=== PATIENT | female | born 1985 | race Caucasian/White ===

== ENCOUNTER 2017-08-05 23:15 | Inpatient (IN) | payer BC, OTHER ==
[2017-08-05] MEDS ORDERED: ONDANSETRON 4 MG/2 ML VIAL IVPB ONE (23:44)
[2017-08-05] MEDS ORDERED: morphine CARPU-JECT 4 MG/1 ML DISP.SYRIN IVPUSH ONE (23:44)
[2017-08-05] MEDS ORDERED: SODIUM CHLORIDE 1,000 ML IV STA (23:44)
[2017-08-05] MEDS ORDERED: PANTOPRAZOLE SODIUM 40 MG VIAL IVPUSH ONE (23:44)
[2017-08-05] MEDS ORDERED: FAMOTIDINE IV 20 MG/12 ML VIAL IVPUSH ONE (23:45)
[2017-08-05] MEDS ORDERED: MORPHINE SULFATE 10 MG/1 ML *VIAL ONE (23:53)
[2017-08-05] MEDS ORDERED: ONDANSETRON 4 MG/2 ML VIAL ONE (23:54)
[2017-08-05] MEDS ORDERED: PANTOPRAZOLE SODIUM 40 MG VIAL ONE (23:54)
[2017-08-05] MEDS ORDERED: FAMOTIDINE 20 MG/50 ML IVPB 20 MG/50 ML MG IVPB ONE (23:54)
[2017-08-06 00:36] LABS: EOS % 0.1 % (0-4.5); HEMATOCRIT 40.7 % (32.4-45.2); HEMOGLOBIN 13.2 GM/dL (10.7-15.3); LYMPH % 8.9 % (8-40); MCH 28.8 pg (25.7-33.7); MCHC 32.4 g/dl (32.0-36.0); MEAN CELL VOLUME 88.9 fl (80-96); MEAN PLT VOLUME 9.7 fl (7.5-11.1); MONO % 2.6 % (3.8-10.2); NEUT % 88.4 % (42.8-82.8); PLATELET COUNT 320 K/MM3 (134-434); RBC 4.58 M/mm3 (3.60-5.2); RDW 13.1 % (11.6-15.6)
[2017-08-06] MEDS ORDERED: PANTOPRAZOLE SODIUM 80 MG in SODIUM CHLORIDE 100 ML IVPB SCH (00:45)
[2017-08-06 00:49] LABS: INR 1.11 (0.82-1.09); PROTHROMBIN TIME (PATIENT) 12.5 SEC (9.98-11.88)
[2017-08-06 00:52] LABS: ACTIVATED PTT 28.8 SECONDS (26.9-34.4)
[2017-08-06] MEDS ORDERED: morphine CARPU-JECT 4 MG/1 ML DISP.SYRIN IVPUSH ONE (01:15)
--- NOTE | 2017-08-06 01:19 | PDOC ---
History of Present Illness - History of Present Illness Initial Comments: 08/06/17 01:42 The patient is a 31 year old female, with a significant past medical history of peptic ulcer, who presents to the emergency department with, approx. one day of epigastric abdominal pain and multiple episodes of vomiting and diarrhea. The patient reports she has been unable to tolerate foods and reports multiple episodes of vomiting with noting a small amount of bright red blood at first but now reports the vomit has been bilious and non bloody. The patient also reports multiple episodes of diarrhea and noting a small amount of bright red blood. The patient reports that approx. one year ago she was diagnosed with a peptic ulcer and reports the symptoms feel exactly the same. The patient reports she followed with GI Dr. Liriano for her peptic ulcer last year. She denies recent fevers, chills, headache or dizziness. She denies recent dysuria, frequency, urgency or hematuria. She denies recent chest pain or shortness of breath. Allergies: NKA Past surgical history: None reported. Social history: Nonsmoker. Denies EtOH use and recreational drug use. <Jaylan Heller - Last Filed: 08/06/17 02:19> - General History Source: Patient Exam Limitations: No Limitations <Gianni Bergeron - Last Filed: 08/06/17 03:23> - General Chief Complaint: Rectal Bleed Stated Complaint: VOMITING/DIARRHEA Time Seen by Provider: 08/05/17 23:28 Past History <Jaylan Heller - Last Filed: 08/06/17 02:19> - Past Medical History COPD: No GI Disorders: Yes (ulcer) - Suicide/Smoking/Psychosocial Hx Smoking History: Never smoked Have you smoked in the past 12 months: No Information on smoking cessation initiated: No Hx Alcohol Use: No Drug/Substance Use Hx: No Substance Use Type: Marijuana, Opiates, Prescribed <Gianni Bergeron - Last Filed: 08/06/17 03:23> - Past Medical History Allergies/Adverse Reactions: Allergies Allergy/AdvReac Type Severity Reaction Status Date / Time No Known Allergies Allergy Verified 08/05/17 23:23 Home Medications: Ambulatory Orders Acetaminophen [Tylenol -] 500 mg PO Q6H #100 tablet 08/05/15 Ondansetron [Zofran -] 4 mg PO BID #14 tablet 08/05/15 Oxycodone HCl 15 mg PO Q6H PRN 08/05/15 Oxycodone Sr [Oxycontin -] 15 mg PO BID PRN 08/05/15 Simethicone [Gas-X] 80 mg PO QID #60 tab.chew 08/05/15 Review of Systems - Review of Systems Able to Perform ROS?: Yes Comments:: 08/06/17 01:42 GENERAL/CONSTITUTIONAL: No fever or chills. No weakness. HEAD, EYES, EARS, NOSE AND THROAT: No change in vision. No ear pain or discharge. No sore throat. CARDIOVASCULAR: No chest pain or shortness of breath. RESPIRATORY: No cough, wheezing, or hemoptysis. GASTROINTESTINAL: +Epigastric abdominal pain. +Nausea. +Vomiting. +Diarrhea. No constipation. GENITOURINARY: No dysuria, frequency, or change in urination. MUSCULOSKELETAL: No joint or muscle swelling or pain. No neck or back pain. SKIN: No rash NEUROLOGIC: No headache, vertigo, loss of consciousness, or change in strength/ sensation. ENDOCRINE: No increased thirst. No abnormal weight change. HEMATOLOGIC/LYMPHATIC: No anemia, easy bleeding, or history of blood clots. ALLERGIC/IMMUNOLOGIC: No hives or skin allergy. <Jaylan Heller - Last Filed: 08/06/17 02:19> *Physical Exam - Vital Signs Last Vital Signs Temp Pulse Resp BP Pulse Ox 98.9 F 99 H 18 157/100 100 08/05/17 23:18 08/05/17 23:18 08/05/17 23:18 08/05/17 23:18 08/05/17 23:18 - Physical Exam Comments: 08/06/17 01:42 GENERAL: +Uncomfortable appearing. Awake, alert, and fully oriented. HEAD: No signs of trauma EYES: PERRLA, EOMI, sclera anicteric, conjunctiva clear ENT: +Dry mucus membranes. Auricles normal inspection, hearing grossly normal, nares patent, oropharynx clear without exudates. NECK: Normal ROM, supple, no lymphadenopathy, JVD, or masses LUNGS: Breath sounds equal, clear to auscultation bilaterally. No wheezes, and no crackles HEART: Regular rate and rhythm, normal S1 and S2, no murmurs, rubs or gallops ABDOMEN: +Tender to epigastric region. Negative murphys sign. Soft, normoactive bowel sounds. No guarding, no rebound. No masses RECTAL: +Small external hemorrhoid EXTREMITIES: Normal range of motion, no edema. No clubbing or cyanosis. No cords, erythema, or tenderness NEUROLOGICAL: Cranial nerves II through XII grossly intact. Normal speech, normal gait SKIN: Warm, Dry, normal turgor, no rashes or lesions noted. <Jaylan Heller - Last Filed: 08/06/17 02:19> - Vital Signs Last Vital Signs Temp Pulse Resp BP Pulse Ox 98.9 F 99 H 18 157/100 100 08/05/17 23:18 08/05/17 23:18 08/05/17 23:18 08/05/17 23:18 08/05/17 23:18 <Gianni Bergeron - Last Filed: 08/06/17 03:23> ED Treatment Course - LABORATORY CBC & Chemistry Diagram: 08/06/17 00:08 08/06/17 00:08 - ADDITIONAL ORDERS Additional order review: Laboratory Results 08/06/17 08/06/17 08/06/17 00:15 00:08 00:08 PT with INR INR PTT (Actin FS) Sodium 138 Potassium 4.1 Chloride 101 Carbon Dioxide 25 Anion Gap 12 BUN 9 Creatinine 0.6 Creat Clearance w eGFR > 60 Random Glucose 90 Calcium 9.9 Total Bilirubin 0.7 AST 14 L ALT 46 Alkaline Phosphatase 91 Total Protein 7.6 Albumin 4.2 Lipase 76 Serum , Qual Stool Occult Blood Negative Blood Type O POSITIVE 08/06/17 08/06/17 00:08 00:08 PT with INR 12.50 H INR 1.11 PTT (Actin FS) 28.8 Sodium Potassium Chloride Carbon Dioxide Anion Gap BUN Creatinine Creat Clearance w eGFR Random Glucose Calcium Total Bilirubin AST ALT Alkaline Phosphatase Total Protein Albumin Lipase Serum , Qual Negative Stool Occult Blood Blood Type 08/06/17 00:08 RBC 4.58 MCV 88.9 MCHC 32.4 RDW 13.1 MPV 9.7 Neutrophils % 88.4 H Lymphocytes % 8.9 Monocytes % 2.6 L Eosinophils % 0.1 D Basophils % 0.0 - Medications Given in the ED: ED Medications Discontinued Medications Generic Name Dose Route Start Last Admin Trade Name Freq PRN Reason Stop Dose Admin Famotidine 20 mg in 12 mls @ 144 mls/hr 08/05/17 23:45 08/06/17 00:05 Pepcid 20 Mg/12 Ml Push IVPUSH 08/05/17 23:49 144 mls/hr ONCE ONE Administration Sodium Chloride 1,000 mls @ 1,000 mls/hr 08/05/17 23:44 08/06/17 00:05 Normal Saline - IV 08/06/17 00:43 1,000 mls/hr ASDIR STA Administration Morphine Sulfate 4 mg 08/05/17 23:44 08/06/17 00:05 Morphine Injection - IVPUSH 08/05/17 23:45 4 mg ONCE ONE Administration Ondansetron HCl 4 mg 08/05/17 23:44 08/06/17 00:05 Zofran Injection IVPB 08/05/17 23:45 4 mg ONCE ONE Administration Pantoprazole Sodium 40 mg 08/05/17 23:44 08/06/17 00:05 Protonix Iv IVPUSH 08/05/17 23:45 40 mg ONCE ONE Administration <Jaylan Heller - Last Filed: 08/06/17 02:19> - LABORATORY CBC & Chemistry Diagram: 08/06/17 00:08 08/06/17 00:08 - ADDITIONAL ORDERS Additional order review: Laboratory Results 08/06/17 08/06/17 08/06/17 00:15 00:08 00:08 PT with INR 12.50 H INR 1.11 PTT (Actin FS) 28.8 Serum , Qual Negative Stool Occult Blood Negative 08/06/17 00:08 RBC 4.58 MCV 88.9 MCHC 32.4 RDW 13.1 MPV 9.7 Neutrophils % 88.4 H Lymphocytes % 8.9 Monocytes % 2.6 L Eosinophils % 0.1 D Basophils % 0.0 - Medications Given in the ED: ED Medications Discontinued Medications Generic Name Dose Route Start Last Admin Trade Name Freq PRN Reason Stop Dose Admin Famotidine 20 mg in 12 mls @ 144 mls/hr 08/05/17 23:45 08/06/17 00:05 Pepcid 20 Mg/12 Ml Push IVPUSH 08/05/17 23:49 144 mls/hr ONCE ONE Administration Sodium Chloride 1,000 mls @ 1,000 mls/hr 08/05/17 23:44 08/06/17 00:05 Normal Saline - IV 08/06/17 00:43 1,000 mls/hr ASDIR STA Administration Morphine Sulfate 4 mg 08/05/17 23:44 08/06/17 00:05 Morphine Injection - IVPUSH 08/05/17 23:45 4 mg ONCE ONE Administration Ondansetron HCl 4 mg 08/05/17 23:44 08/06/17 00:05 Zofran Injection IVPB 08/05/17 23:45 4 mg ONCE ONE Administration Pantoprazole Sodium 40 mg 08/05/17 23:44 08/06/17 00:05 Protonix Iv IVPUSH 08/05/17 23:45 40 mg ONCE ONE Administration <Gianni Bergeron - Last Filed: 08/06/17 03:23> Medical Decision Making - Medical Decision Making 08/06/17 01:16 A portion of this note was documented by scribe services under my direction. I have reviewed the details of the note, within reason, and agree with the documentation with the following case summary and management plan written by me. Patient treated in the ED. Nursing notes are reviewed and incorporated into the medical decision-making. Vital signs reviewed. Peripheral IV access obtained by the nurse, laboratory studies are drawn and sent, reviewed and interpreted by myself. Vital Signs Temp Pulse Resp BP Pulse Ox 98.9 F 99 H 18 157/100 100 08/05/17 23:18 08/05/17 23:18 08/05/17 23:18 08/05/17 23:18 08/05/17 23:18 31-year-old female with past medical history of peptic ulcer disease presents to the emergency department with hematochezia and epigastric pain. Patient reported the pacer yesterday and today she had numerous dark melanotic stools and occasionally blood per rectum. Her most recent stools were gideon hematochezia. Also notes some nausea with some small amounts of red blood per vomiting. States that this felt like exactly year ago. She had an endoscopy performed that time which demonstrated ulcers. Patient was supposed be on Protonix but has been intermittently adherent. Denies fevers or chills. Patient likely with upper GI bleed. Upon performing rectal exam, unable to obtain adequate stool sample. Protonix bolus and drip ordered. Given the symptoms, the patient should be admitted to the hospital further evaluation and management. 08/06/17 02:46 CBC, BMP 08/06/17 00:08 08/06/17 00:08 CMP Sodium 138 mmol/L (136-145) 08/06/17 00:08 Potassium 4.1 mmol/L (3.5-5.1) 08/06/17 00:08 Chloride 101 mmol/L (98-107) 08/06/17 00:08 Carbon Dioxide 25 mmol/L (21-32) 08/06/17 00:08 Anion Gap 12 (8-16) 08/06/17 00:08 BUN 9 mg/dL (7-18) 08/06/17 00:08 Creatinine 0.6 mg/dL (0.55-1.02) 08/06/17 00:08 Creat Clearance w eGFR > 60 (>60) 08/06/17 00:08 Random Glucose 90 mg/dL (74-106) 08/06/17 00:08 Calcium 9.9 mg/dL (8.5-10.1) 08/06/17 00:08 Total Bilirubin 0.7 mg/dL (0.2-1.0) 08/06/17 00:08 AST 14 U/L (15-37) L 08/06/17 00:08 ALT 46 U/L (12-78) 08/06/17 00:08 Alkaline Phosphatase 91 U/L (45-117) 08/06/17 00:08 Total Protein 7.6 g/dl (6.4-8.2) 08/06/17 00:08 Albumin 4.2 g/dl (3.4-5.0) 08/06/17 00:08 Lipase 76 U/L (73-393) 08/06/17 00:08 Serum , Qual Negative 08/06/17 00:08 08/06/17 03:[address] Holloway who accepts for med/surg observation. Case discussed in detail with admitting physician including history, physical exam and ancillary studies. Admitting physician has assumed care for the patient, will follow all pending diagnostics and will complete the evaluation and treatment. <Gianni Bergeron - Last Filed: 08/06/17 03:23> *DC/Admit/Observation/Transfer - Attestations Scribe Attestion: 08/06/17 01:43 Documentation prepared by Jaylan Heller, acting as medical researcher for Gianni Bergeron MD. <Jaylan Heller - Last Filed: 08/06/17 02:19> - Discharge Dispostion Admit: Yes <Gianni Bergeron - Last Filed: 08/06/17 03:23> Diagnosis at time of Disposition: Upper GI bleed - Discharge Dispostion Condition at time of disposition: Stable
[2017-08-06 01:30] LABS: ALBUMIN 4.2 g/dl (3.4-5.0); ALK PHOS 91 U/L (45-117); ANION GAP 12 (8-16); BILIRUBIN,TOTAL 0.7 mg/dL (0.2-1.0); BLOOD UREA NITROGEN 9 mg/dL (7-18); CALCIUM 9.9 mg/dL (8.5-10.1); CHLORIDE 101 mmol/L (98-107); CO2 25 mmol/L (21-32); CREATININE 0.6 mg/dL (0.55-1.02); GLUCOSE,RANDOM 90 mg/dL (74-106); LIPASE 76 U/L (73-393); POTASSIUM 4.1 mmol/L (3.5-5.1); SGOT/AST 14 U/L (15-37); SGPT/ALT 46 U/L (12-78); SODIUM 138 mmol/L (136-145); TOT PROT 7.6 g/dl (6.4-8.2)
[2017-08-06] MEDS ORDERED: MORPHINE SULFATE 10 MG/1 ML *VIAL ONE ×3 (01:45→12:15)
[2017-08-06] MEDS ORDERED: PANTOPRAZOLE SODIUM 40 MG VIAL ONE (01:51)
[2017-08-06] MEDS ORDERED: MORPHINE SULFATE 10 MG/1 ML *VIAL IVPUSH PRN (04:40)
[2017-08-06] MEDS ORDERED: SODIUM CHLORIDE 1,000 ML IV SCH (04:45)
--- NOTE | 2017-08-06 04:52 | HP ---
<Nando White - Last Filed: 08/06/17 05:05> CHIEF COMPLAINT: nausea, vomiting, pain abdomen HISTORY OF PRESENT ILLNESS: The patient is a 31 year old female, with a significant past medical history of peptic ulcer who presents to the emergency department with multiple episodes of vomiting and diarrhoea. Patient states that she was on amoxicillin started on for sore throat and than she started having a diarrhoea, but today it got worse with one episode of blood in diarrhoea, has multiple episodes, watery in consistency. She also states that today she has cramps and pain in abdomen /, present in lower abdomen, intermittent, non radiating. She also reports vomiting started today, multiple episodes, initially first two vomits has blood but than it started having a bile. 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 she also reports burning sensation in epigastria area. One year ago she was diagnosed with a peptic ulcer The patient reports she followed with GI Dr. Liriano for her peptic ulcer last year and was started on protonix which she didn't take. she report chills but no fever She denies recent fevers,, headache or dizziness. She denies recent dysuria, frequency, urgency or hematuria. She denies recent chest pain or shortness of breath. ER course was notable for: (1)cbc, cmp, iv fluid, morphine, protonoix drip and zofran Recent Travel:no PAST MEDICAL HISTORY:peptic ulcer ds, chronic back pain takes oxycodone PAST SURGICAL HISTORY: no Social History: Smoking: no Alcohol: occasional Drugs: no Family History: no Allergies No Known Allergies Allergy (Verified 08/05/17 23:23) HOME MEDICATIONS: Home Medications Medication Instructions Recorded Ondansetron [Zofran -] 4 mg PO BID #14 tablet 08/05/15 Oxycodone HCl 15 mg PO Q6H PRN 08/05/15 Oxycodone Sr [Oxycontin -] 15 mg PO BID PRN 08/05/15 REVIEW OF SYSTEMS CONSTITUTIONAL: present chills Absent: fever, , diaphoresis, generalized weakness, malaise, loss of appetite, weight change HEENT: Absent: rhinorrhea, nasal congestion, throat pain, throat swelling, difficulty swallowing, mouth swelling, ear pain, eye pain, visual changes CARDIOVASCULAR: Absent: chest pain, syncope, palpitations, irregular heart rate, lightheadedness , peripheral edema RESPIRATORY: Absent: cough, shortness of breath, dyspnea with exertion, orthopnea, wheezing, stridor, hemoptysis GASTROINTESTINAL: as above GENITOURINARY: Absent: dysuria, frequency, urgency, hesitancy, hematuria, flank pain, genital pain MUSCULOSKELETAL: Absent: myalgia, arthralgia, NEUROLOGIC: Absent: headache, focal weakness or paresthesias, dizziness, PSYCHIATRIC: Absent: anxiety, depression, PHYSICAL EXAMINATION Vital Signs - 24 hr 08/05/17 08/06/17 23:18 04:34 Temperature 98.9 F Pulse Rate 99 H Pulse Rate [ 68 Left Radial] Respiratory 18 18 Rate Blood Pressure 157/100 Blood Pressure 133/74 [Left Arm] O2 Sat by Pulse 100 99 Oximetry (%) GENERAL: Awake, alert, and fully oriented, in no acute distress. HEAD: Normal with no signs of trauma. EARS, NOSE, THROAT: Ears normal, nares patent, oropharynx clear without exudates. dry mucous membranes. NECK: Normal range of motion, supple without lymphadenopathy, JVD, or masses. LUNGS: Breath sounds equal, clear to auscultation bilaterally. No wheezes, and no crackles. No accessory muscle use. HEART: Regular rate and rhythm, normal S1 and S2 without murmur, rub or gallop. ABDOMEN: Soft, mild tender in lower abdomen, not distended, hyperactive bowel sounds, no guarding, no masses. UPPER EXTREMITIES: 2+ pulses, warm, well-perfused. No cyanosis. No clubbing. No peripheral edema., anal skin tag present no active bleeding seen LOWER EXTREMITIES: 2+ pulses, warm, well-perfused. PSYCHIATRIC: Cooperative. Good eye contact. SKIN: Warm, dry, normal turgor, Laboratory Results - last 24 hr 08/06/17 08/06/17 08/06/17 00:08 00:08 00:08 WBC 14.0 H D RBC 4.58 Hgb 13.2 Hct 40.7 MCV 88.9 MCH 28.8 MCHC 32.4 RDW 13.1 Plt Count 320 D MPV 9.7 Neutrophils % 88.4 H Lymphocytes % 8.9 Monocytes % 2.6 L Eosinophils % 0.1 D Basophils % 0.0 PT with INR 12.50 H INR 1.11 PTT (Actin FS) 28.8 Sodium Potassium Chloride Carbon Dioxide Anion Gap BUN Creatinine Creat Clearance w eGFR Random Glucose Calcium Total Bilirubin AST ALT Alkaline Phosphatase Total Protein Albumin Lipase Serum , Qual Negative Stool Occult Blood Blood Type Antibody Screen 08/06/17 08/06/17 08/06/17 00:08 00:08 00:15 WBC RBC Hgb Hct MCV MCH MCHC RDW Plt Count MPV Neutrophils % Lymphocytes % Monocytes % Eosinophils % Basophils % PT with INR INR PTT (Actin FS) Sodium 138 Potassium 4.1 Chloride 101 Carbon Dioxide 25 Anion Gap 12 BUN 9 Creatinine 0.6 Creat Clearance w eGFR > 60 Random Glucose 90 Calcium 9.9 Total Bilirubin 0.7 AST 14 L ALT 46 Alkaline Phosphatase 91 Total Protein 7.6 Albumin 4.2 Lipase 76 Serum , Qual Stool Occult Blood Negative Blood Type O POSITIVE Antibody Screen Negative ASSESSMENT/PLAN: 31 y/of with PMH of peptic ulcer ds currently taking antibiotics for sore throat came in with diarrhoea, vomiting, and pain abdomen. Also reports one episode of bloody diarrhoea and vomit. Enterocolitis: d/d viral, bacterial, c diff, parasitic. IV fluid monitor intake nad output monitor vitals stool for occult negative get stool culture get stool for ova parasite stool for c diff wbc in stool. IV protonix zofran prn for nausea. monitor haemoglobin Fluid: IV NS 83ml/hr electrolyte: repeat in am nutrition: NPo for now, consider clear liquid from morning. dvt pro: pt ambulatory gi pro: on protonix dispo: med surg Visit type - Emergency Visit Emergency Visit: Yes ED Registration Date: 08/06/17 Care time: The patient presented to the Emergency Department on the above date and was hospitalized for further evaluation of their emergent condition. - New Patient This patient is new to me today: Yes Date on this admission: 08/06/17 - Critical Care Critical Care patient: No <Janette Holloway - Last Filed: 08/06/17 06:25> ATTENDING PHYSICIAN STATEMENT I saw and evaluated the patient. I reviewed the resident's note and discussed the case with the resident. I agree with the resident's findings and plan as documented. Nausea , vomiting and multiple episodes of diarrhea Vital Signs Temperature 98.9 F 08/05/17 23:18 Pulse Rate 68 08/06/17 04:34 Respiratory Rate 18 08/06/17 04:34 Blood Pressure 133/74 08/06/17 04:34 O2 Sat by Pulse Oximetry (%) 99 08/06/17 04:34 EARS, NOSE, THROAT: Ears normal, nares patent, oropharynx clear without exudates. dry mucous membranes. NECK: Normal range of motion, supple without lymphadenopathy, JVD, or masses. LUNGS: Breath sounds equal, clear to auscultation bilaterally. No wheezes, and no crackles. No accessory muscle use. HEART: Regular rate and rhythm, normal S1 and S2 without murmur, rub or gallop. ABDOMEN: Soft, mild tender in lower abdomen, not distended, hyperactive bowel sounds, no guarding, no masses. CBC, BMP 08/06/17 00:08 08/06/17 00:08 Agree with plan above IVF NPO Stool studies GI consult
[2017-08-06] MEDS ORDERED: ONDANSETRON 4 MG/2 ML VIAL IVPUSH ONE (04:57)
[2017-08-06] MEDS ORDERED: ONDANSETRON 4 MG/2 ML VIAL ONE (05:20)
--- NOTE | 2017-08-06 08:47 | PN ---
Physical Exam: SUBJECTIVE: Patient seen and examined by me this AM - Still complaining of intense bouts of crampy abdominal pain. States she feels like she is "byron against something that wont move". One episode of NB diarrhea overnight. Multiple episodes of emesis, no blood noted overnight. Denies occasional chills with crampy pain. Denies fevers, cough, CP, SOB, ERICKSON, dysuria, LE edema, rashes, or back pain. OBJECTIVE: Vital Signs Intake & Output 08/03/17 08/04/17 08/05/17 08/06/17 23:59 23:59 23:59 23:59 Weight 140 kg Period Temp Pulse Resp BP Sys/Martines Pulse Ox Last 24 Hr 98.0 F-98.9 F 54-99 -18 114-157/65-100 98-100 GENERAL: Young woman, lying bed. patient is awake, alert, and fully oriented, in no acute distress. HEAD: Normal with no signs of trauma. EYES: PERRL, extraocular movements intact, sclera anicteric, conjunctiva clear. No ptosis. ENT: Ears normal, nares patent, oropharynx clear without exudates, moist mucous membranes. NECK: Trachea midline, full range of motion, supple. LUNGS: Breath sounds equal, clear to auscultation bilaterally, no wheezes, no crackles, no accessory muscle use. HEART: Regular rate and rhythm, S1, S2 without murmur, rub or gallop. ABDOMEN: Tender to palpation in LUQ, epigastric region. Otherwise, Soft, nontender, nondistended, normoactive bowel sounds, no guarding, no rebound, no hepatosplenomegaly, no masses. EXTREMITIES: 2+ pulses, warm, well-perfused, no edema. NEUROLOGICAL: Cranial nerves II through XII grossly intact. Normal speech, gait not observed. PSYCH: Normal mood, normal affect. SKIN: Warm, dry, normal turgor, no rashes or lesions noted Laboratory Results - last 24 hr CBC, BMP 08/06/17 00:08 08/06/17 00:08 08/06/17 08/06/17 08/06/17 00:08 00:08 00:08 WBC 14.0 H D RBC 4.58 Hgb 13.2 Hct 40.7 MCV 88.9 MCH 28.8 MCHC 32.4 RDW 13.1 Plt Count 320 D MPV 9.7 Neutrophils % 88.4 H Lymphocytes % 8.9 Monocytes % 2.6 L Eosinophils % 0.1 D Basophils % 0.0 PT with INR 12.50 H INR 1.11 PTT (Actin FS) 28.8 Sodium Potassium Chloride Carbon Dioxide Anion Gap BUN Creatinine Creat Clearance w eGFR Random Glucose Calcium Total Bilirubin AST ALT Alkaline Phosphatase Total Protein Albumin Lipase Serum , Qual Negative Stool Occult Blood Blood Type Antibody Screen 08/06/17 08/06/17 08/06/17 00:08 00:08 00:15 WBC RBC Hgb Hct MCV MCH MCHC RDW Plt Count MPV Neutrophils % Lymphocytes % Monocytes % Eosinophils % Basophils % PT with INR INR PTT (Actin FS) Sodium 138 Potassium 4.1 Chloride 101 Carbon Dioxide 25 Anion Gap 12 BUN 9 Creatinine 0.6 Creat Clearance w eGFR > 60 Random Glucose 90 Calcium 9.9 Total Bilirubin 0.7 AST 14 L ALT 46 Alkaline Phosphatase 91 Total Protein 7.6 Albumin 4.2 Lipase 76 Serum , Qual Stool Occult Blood Negative Blood Type O POSITIVE Antibody Screen Negative Active Medications Generic Name Dose Route Start Last Admin Trade Name Freq PRN Reason Stop Dose Admin Sodium Chloride 1,000 mls @ 83 mls/hr 08/06/17 04:45 08/06/17 04:46 Normal Saline - IV 83 mls/hr ASDIR ALEX Administration Morphine Sulfate 4 mg 08/06/17 04:40 08/06/17 07:14 Morphine Injection - IVPUSH 4 mg Q6H PRN Administration PAIN LEVEL 4 - 6 Ondansetron HCl 4 mg 08/06/17 04:39 Zofran Injection IVPUSH Q6H PRN NAUSEA Pantoprazole Sodium 40 mg 08/06/17 10:00 Protonix Iv IVPUSH BID ALEX Micro pending CT ab/pelvis 08/06 - 1. Findings consistent with colitis of the right and transverse colon. 2. Involuting right ovarian cyst with free pelvic fluid. Clinical correlation and follow-up recommended. Please see above discussion. ASSESSMENT/PLAN: 31 y/of with PMH of peptic ulcer ds currently taking antibiotics for sore throat came in with diarrhoea, vomiting, and pain abdomen. Also reports one episode of bloody diarrhea and vomit. Enterocolitis- viral vs bacterial vs c diff vs parasitic. -IVFs/PO hydration - FOBT negative - f/u stool culture, O+P, C diff, WCB count - IV PPI - Zofran for N/V - Trend H/H - GI consulted, recs appreciated - Cetriaxone, flagyl; Day 1 - CT with R and traverse colon with colitis - Trend fever, CBC - Bowel rest - Flex sig if no improvement in 2-3 days - Morphine 2mg q4h for pain - f/u urine cx Fluid: IV NS 100ml/hr electrolyte: Daily BMP NPO except for meds, sips DVT - ambulatory; SCDs GI - PPI dispo - med surg Plan discussed with attending, Dr. Ayden Winn, PGY1 Visit type - Emergency Visit Emergency Visit: Yes ED Registration Date: 08/06/17 Care time: The patient presented to the Emergency Department on the above date and was hospitalized for further evaluation of their emergent condition. - New Patient This patient is new to me today: Yes Date on this admission: 08/07/17 - Critical Care Critical Care patient: No - Discharge Referral Referred to [facility] No
[2017-08-06] MEDS: PANTOPRAZOLE SODIUM 40 MG VIAL IVPUSH SCH ×3 (09:36→22:54)
[2017-08-06 09:38] LABS: BASO % 0.7 % (0-2.0); EOS % 0.8 % (0-4.5); HEMATOCRIT 36.3 % (32.4-45.2); HEMOGLOBIN 11.7 GM/dL (10.7-15.3); LYMPH % 14.1 % (8-40); MCH 29.1 pg (25.7-33.7); MCHC 32.2 g/dl (32.0-36.0); MEAN CELL VOLUME 90.1 fl (80-96); MEAN PLT VOLUME 9.4 fl (7.5-11.1); MONO % 4.7 % (3.8-10.2); NEUT % 79.7 % (42.8-82.8); PLATELET COUNT 240 K/MM3 (134-434); RBC 4.02 M/mm3 (3.60-5.2); RDW 13.1 % (11.6-15.6); WHITE BLOOD COUNT 13.3 K/mm3 (4.0-10.0)
[2017-08-06] MEDS ORDERED: CEFTRIAXONE 1 GM/50 ML BAG ONE (12:16)
[2017-08-06] MEDS: MORPHINE SULFATE 10 MG/1 ML *VIAL IVPUSH PRN ×3 (12:20→23:00)
[2017-08-06] MEDS: CEFTRIAXONE 1 G/50 ML PREMIX 50 ML IVPB SCH (12:32)
--- NOTE | 2017-08-06 14:08 | CON.GI ---
Consult Consult Specialty:: GI - History of Present Illness History of Present Illness: Chart reviewed. Events noted. 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 Took antibiotic for 6-7 days prior to the onset of the symptoms. No prior history of the same. No other GI history. Denies fever, chills, hematemesis, dysphagia, odynophagia, jaundice, pencil-thin, or ribbon-like stools. Denies weight loss, joint, skin, eye, back symptoms. No family hx of IBD. No other new medications, recent travel, changes in diet, chronic NSAIDs, alcohol. - History Source History Provided By: Patient - Alcohol/Substance Use Hx Alcohol Use: No - Smoking History Smoking history: Never smoked Have you smoked in the past 12 months: No Home Medications - Allergies Allergies/Adverse Reactions: Allergies Allergy/AdvReac Type Severity Reaction Status Date / Time No Known Allergies Allergy Verified 08/05/17 23:23 - Home Medications Home Medications: Ambulatory Orders Ondansetron [Zofran -] 4 mg PO BID #14 tablet 08/05/15 Oxycodone HCl 15 mg PO Q6H PRN 08/05/15 Oxycodone Sr [Oxycontin -] 15 mg PO BID PRN 08/05/15 Family Disease History - Family Disease History Family History: Unremarkable Review of Systems Findings/Remarks: Please refer to HPI and H&P. Physical Exam-GI Vital Signs: Vital Signs Temperature 98.4 F 08/06/17 12:00 Pulse Rate 81 08/06/17 12:00 Respiratory Rate 20 08/06/17 12:00 Blood Pressure 103/68 08/06/17 12:00 O2 Sat by Pulse Oximetry (%) 96 08/06/17 12:00 Constitutional: Yes: Well Nourished, Anxious, Mild Distress Eyes: Yes: Conjunctiva Clear HENT: Yes: Atraumatic Neck: Yes: Supple Cardiovascular: Yes: Regular Rate and Rhythm Respiratory: Yes: Regular Gastrointestinal Inspection: No: Ascites, Distention ...Auscultate: Yes: Normoactive Bowel Sounds ...Palpate: Yes: Soft, Tenderness. No: Firm/Rigid, Guarding, Mass, Tenderness, Rebound Edema: No Neurological: Yes: Alert, Oriented Labs: CBC, BMP 08/06/17 09:25 08/06/17 00:08 INR, PTT INR 1.11 (0.82-1.09) 08/06/17 00:08 Laboratory Tests 08/06/17 08/06/17 08/06/17 00:08 00:08 00:08 WBC 14.0 H D RBC 4.58 Hgb 13.2 Hct 40.7 MCV 88.9 MCH 28.8 MCHC 32.4 RDW 13.1 Plt Count 320 D MPV 9.7 Neutrophils % 88.4 H Lymphocytes % 8.9 Monocytes % 2.6 L Eosinophils % 0.1 D Basophils % 0.0 PT with INR 12.50 H INR 1.11 PTT (Actin FS) 28.8 Sodium Potassium Chloride Carbon Dioxide Anion Gap BUN Creatinine Creat Clearance w eGFR Random Glucose Calcium Total Bilirubin AST ALT Alkaline Phosphatase Total Protein Albumin Lipase Serum , Qual Negative Stool Occult Blood Blood Type Antibody Screen 08/06/17 08/06/17 08/06/17 00:08 00:08 00:15 WBC RBC Hgb Hct MCV MCH MCHC RDW Plt Count MPV Neutrophils % Lymphocytes % Monocytes % Eosinophils % Basophils % PT with INR INR PTT (Actin FS) Sodium 138 Potassium 4.1 Chloride 101 Carbon Dioxide 25 Anion Gap 12 BUN 9 Creatinine 0.6 Creat Clearance w eGFR > 60 Random Glucose 90 Calcium 9.9 Total Bilirubin 0.7 AST 14 L ALT 46 Alkaline Phosphatase 91 Total Protein 7.6 Albumin 4.2 Lipase 76 Serum , Qual Stool Occult Blood Negative Blood Type O POSITIVE Antibody Screen Negative 08/06/17 09:25 WBC 13.3 H RBC 4.02 Hgb 11.7 D Hct 36.3 MCV 90.1 MCH 29.1 MCHC 32.2 RDW 13.1 Plt Count 240 D MPV 9.4 Neutrophils % 79.7 Lymphocytes % 14.1 D Monocytes % 4.7 D Eosinophils % 0.8 D Basophils % 0.7 D PT with INR INR PTT (Actin FS) Sodium Potassium Chloride Carbon Dioxide Anion Gap BUN Creatinine Creat Clearance w eGFR Random Glucose Calcium Total Bilirubin AST ALT Alkaline Phosphatase Total Protein Albumin Lipase Serum , Qual Stool Occult Blood Blood Type Antibody Screen Imaging - Results Cat Scan: Report Reviewed Problem List - Problems (1) Enterocolitis Code(s): K52.9 - NONINFECTIVE GASTROENTERITIS AND COLITIS, UNSPECIFIED Assessment/Plan given the history, suspect acute enterocolitis. Doubt IBD, ischemia, upper GI bleeding Follow CT results Stool for c. diff, cx, op IV/PO hydration Bowel rest today levo/flagyl CBC in am If not improving in 2-3 days, will discuss flex-sig with bx
[2017-08-06 15:41] LABS: URINE APPEARANCE SLCLOUDY; URINE BILIRUBIN NEGATIVE (NEGATIVE); URINE BLOOD NEGATIVE (NEGATIVE); URINE COLOR LTYELLOW; URINE GLUCOSE (UA) NEGATIVE (NEGATIVE); URINE KETONE 2+ (NEGATIVE); URINE LEUK ESTERASE NEGATIVE (NEGATIVE); URINE NITRITE NEGATIVE (NEGATIVE); URINE PROTEIN NEGATIVE (NEGATIVE); URINE UROBILINOGEN NEGATIVE mg/dL (0.2-1.0)
[2017-08-06] MEDS: DEXTROSE 5%-NORMAL SALINE 1,000 ML IV SCH (16:08)
[2017-08-06 16:17] VITALS: BMI 24.0
--- NOTE | 2017-08-06 18:22 | PN ---
Teaching Attending Note Name of Resident: Rohit Winn ATTENDING PHYSICIAN STATEMENT time of evaluation: 12:00 PM I saw and evaluated the patient. I reviewed the resident's note and discussed the case with the resident. I agree with the resident's findings and plan as documented. SUBJECTIVE: Patient seen and examined. still with abdominal pain, no further nausea, vomiting or diarrhea since admission. Reports started as abdominal pain, had vomiting, initially scant streaks of blood followed by clear bilous vomitus. Also reports blood diarrhea. has been on amoxicillin recently for 6 days for sore throat. No fevers or recent travel. OBJECTIVE: Vital Signs Period Temp Pulse Resp BP Sys/Martines Pulse Ox Last 24 Hr 97.7 F-98.9 F 54-99 18-20 103-157/65-100 96-100 Intake & Output 08/03/17 08/04/17 08/05/17 08/06/17 23:59 23:59 23:59 23:59 Weight 308 lb 10.354 oz 140 lb general: lying in bed in no acute distress Abdomen: supra-umbilical/LMQ/LLQ tenderness with mild right shiloh-umbilical tenderness, no voluntary guarding or rigidity, positive bowel sounds ND, soft, Home Medication List Medication Instructions Recorded Confirmed Type Oxycodone HCl 15 mg PO Q6H PRN 08/05/15 08/06/17 History Oxycodone Sr [Oxycontin -] 15 mg PO BID PRN 08/05/15 08/06/17 History Active Medications Generic Name Dose Route Start Last Admin Trade Name Freq PRN Reason Stop Dose Admin CEFTRIAXONE 1 G/50 ML PREMIX 50 mls @ 100 mls/hr 08/06/17 12:15 08/06/17 12: 32 Ceftriaxone 1 Gm-D5w Bag IVPB 100 mls/hr DAILY ALEX Administration Metronidazole 500 mg in 100 mls @ 100 mls/hr 08/06/17 12:15 08/06/17 17:26 Flagyl 500mg Premixed Ivpb - IVPB 100 mls/hr Q8H-IV ALEX Administration Dextrose/Sodium Chloride 1,000 mls @ 100 mls/hr 08/06/17 13:30 08/06/17 16:08 D5-Ns - IV 100 mls/hr ASDIR ALEX Administration Morphine Sulfate 2 mg 08/06/17 12:03 08/06/17 16:27 Morphine Injection - IVPUSH 2 mg Q4H PRN Administration PAIN LEVEL 6-10 Ondansetron HCl 4 mg 08/06/17 04:39 Zofran Injection IVPUSH Q6H PRN NAUSEA Pantoprazole Sodium 40 mg 08/06/17 10:00 08/06/17 09:36 Protonix Iv IVPUSH 40 mg BID ALEX Administration Laboratory Results - last 24 hr 08/06/17 08/06/17 08/06/17 00:08 00:08 00:08 WBC 14.0 H D RBC 4.58 Hgb 13.2 Hct 40.7 MCV 88.9 MCH 28.8 MCHC 32.4 RDW 13.1 Plt Count 320 D MPV 9.7 Neutrophils % 88.4 H Lymphocytes % 8.9 Monocytes % 2.6 L Eosinophils % 0.1 D Basophils % 0.0 PT with INR 12.50 H INR 1.11 PTT (Actin FS) 28.8 Sodium Potassium Chloride Carbon Dioxide Anion Gap BUN Creatinine Creat Clearance w eGFR Random Glucose Calcium Total Bilirubin AST ALT Alkaline Phosphatase Total Protein Albumin Lipase Serum , Qual Negative Urine Color Urine Appearance Urine pH Ur Specific [place] Urine Protein Urine Glucose (UA) Urine Ketones Urine Blood Urine Nitrite Urine Bilirubin Urine Urobilinogen Ur Leukocyte Esterase Stool Occult Blood Blood Type Antibody Screen 08/06/17 08/06/17 08/06/17 00:08 00:08 00:15 WBC RBC Hgb Hct MCV MCH MCHC RDW Plt Count MPV Neutrophils % Lymphocytes % Monocytes % Eosinophils % Basophils % PT with INR INR PTT (Actin FS) Sodium 138 Potassium 4.1 Chloride 101 Carbon Dioxide 25 Anion Gap 12 BUN 9 Creatinine 0.6 Creat Clearance w eGFR > 60 Random Glucose 90 Calcium 9.9 Total Bilirubin 0.7 AST 14 L ALT 46 Alkaline Phosphatase 91 Total Protein 7.6 Albumin 4.2 Lipase 76 Serum , Qual Urine Color Urine Appearance Urine pH Ur Specific [place] Urine Protein Urine Glucose (UA) Urine Ketones Urine Blood Urine Nitrite Urine Bilirubin Urine Urobilinogen Ur Leukocyte Esterase Stool Occult Blood Negative Blood Type O POSITIVE Antibody Screen Negative 08/06/17 08/06/17 09:25 15:31 WBC 13.3 H RBC 4.02 Hgb 11.7 D Hct 36.3 MCV 90.1 MCH 29.1 MCHC 32.2 RDW 13.1 Plt Count 240 D MPV 9.4 Neutrophils % 79.7 Lymphocytes % 14.1 D Monocytes % 4.7 D Eosinophils % 0.8 D Basophils % 0.7 D PT with INR INR PTT (Actin FS) Sodium Potassium Chloride Carbon Dioxide Anion Gap BUN Creatinine Creat Clearance w eGFR Random Glucose Calcium Total Bilirubin AST ALT Alkaline Phosphatase Total Protein Albumin Lipase Serum , Qual Urine Color Ltyellow Urine Appearance Slcloudy Urine pH 7.0 D Ur Specific [place] 1.055 H Urine Protein Negative Urine Glucose (UA) Negative Urine Ketones 2+ H Urine Blood Negative Urine Nitrite Negative Urine Bilirubin Negative Urine Urobilinogen Negative Ur Leukocyte Esterase Negative Stool Occult Blood Blood Type Antibody Screen CT A/P reviewed ASSESSMENT AND PLAN: 31 yof with acute colitis -Acute right sided/transverse colitis -Recent sore throat s/p amoxicillin Plan; GI input appreciated, presentation more likely for infectious than inflammatory colitis as discussed. Follow up stool studies including C defficile. start ceftriaxone/flagyl. CT A/P reviewed. Continue IVF, change morphine to 2 mg IV q4h prn/zofran. Change IvF to D5NS. Advance diet as tolerated. h.h stable, monitor for now. DVTPPx with SCDs. dispo when symptoms improve. Flex sig if fails to improve.
[2017-08-06] MEDS: ONDANSETRON 4 MG/2 ML VIAL IVPUSH PRN (18:49)
[2017-08-07] MEDS: ONDANSETRON 4 MG/2 ML VIAL IVPUSH PRN (01:24)
[2017-08-07] MEDS ORDERED: ACETAMINOPHEN 325 MG TABLET (FP) PO PRN ×2 (01:55→08:33)
[2017-08-07] MEDS ORDERED: ACETAMINOPHEN 325 MG TABLET (FP) ONE (02:00)
[2017-08-07] MEDS: MORPHINE SULFATE 10 MG/1 ML *VIAL IVPUSH PRN (03:40)
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
[2017-08-07] MEDS: DEXTROSE 5%-NORMAL SALINE 1,000 ML IV SCH ×2 (06:53→14:34)
[2017-08-07 07:54] LABS: BASO % 0.3 % (0-2.0); EOS % 1.6 % (0-4.5); HEMATOCRIT 32.8 % (32.4-45.2); HEMOGLOBIN 10.8 GM/dL (10.7-15.3); LYMPH % 29.1 % (8-40); MCH 29.4 pg (25.7-33.7); MCHC 32.7 g/dl (32.0-36.0); MEAN CELL VOLUME 89.7 fl (80-96); MONO % 6.9 % (3.8-10.2); NEUT % 62.1 % (42.8-82.8); PLATELET COUNT 203 K/MM3 (134-434); RBC 3.66 M/mm3 (3.60-5.2); RDW 12.8 % (11.6-15.6); WHITE BLOOD COUNT 8.7 K/mm3 (4.0-10.0)
[2017-08-07 08:00] LABS: INR 1.2 (0.82-1.09); PROTHROMBIN TIME (PATIENT) 13.6 SEC (9.98-11.88)
[2017-08-07 08:10] LABS: BLOOD UREA NITROGEN 10 mg/dL (7-18); CHLORIDE 109 mmol/L (98-107); POTASSIUM 3.6 mmol/L (3.5-5.1); SODIUM 138 mmol/L (136-145)
[2017-08-07 08:17] LABS: ALBUMIN 3.5 g/dl (3.4-5.0); ALK PHOS 65 U/L (45-117); ANION GAP 5 (8-16); BILIRUBIN,TOTAL 0.5 mg/dL (0.2-1.0); CALCIUM 7.6 mg/dL (8.5-10.1); CO2 24 mmol/L (21-32); CREATININE 0.5 mg/dL (0.55-1.02); GLUCOSE,RANDOM 93 mg/dL (74-106); MAGNESIUM 1.9 mg/dL (1.8-2.4); PHOSPHOROUS 2.4 mg/dL (2.5-4.9); SGOT/AST 6 U/L (15-37); SGPT/ALT 28 U/L (12-78); TOT PROT 5.9 g/dl (6.4-8.2)
[2017-08-07] MEDS: oxyCODONE HCL 5 MG TABLET PO PRN ×3 (09:40→16:44)
[2017-08-07] MEDS: CEFTRIAXONE 1 G/50 ML PREMIX 50 ML IVPB SCH (09:40)
[2017-08-07] MEDS: PANTOPRAZOLE SODIUM 40 MG VIAL IVPUSH SCH (09:40)
--- NOTE | 2017-08-07 12:21 | PN ---
Teaching Attending Note Name of Resident: Rohit Winn ATTENDING PHYSICIAN STATEMENT Time of evaluation: 8:40 AM I saw and evaluated the patient. I reviewed the resident's note and discussed the case with the resident. I agree with the resident's findings and plan as documented. SUBJECTIVE: Patient seen and examined. doing well, no diarrhea since last night. No further nausea, vomiting. pain has improved and agreable to eat. No dark or bloody stools noted. OBJECTIVE: Vital Signs Period Temp Pulse Resp BP Sys/Martines Pulse Ox Last 24 Hr 97.8 F-98.2 F 62-74 18-18 110-118/54-75 100-100 Intake & Output 08/04/17 08/05/17 08/06/17 08/07/17 23:59 23:59 23:59 23:59 Intake Total 1440 Balance 1440 Weight 308 lb 10.354 oz 140 lb general: lying in bed in no acute distress Abdomen: soft, no tenderness elicited today, no voluntary or involuntary guarding or rigidity, positive bowel sounds, ND extremities: no edema Home Medication List Medication Instructions Recorded Confirmed Type Oxycodone HCl 15 mg PO Q6H PRN 08/05/15 08/06/17 History Oxycodone Sr [Oxycontin -] 15 mg PO BID PRN 08/05/15 08/06/17 History Active Medications Generic Name Dose Route Start Last Admin Trade Name Freq PRN Reason Stop Dose Admin Acetaminophen 650 mg 08/07/17 08:33 Tylenol - PO Q6H PRN PAIN LEVEL 1-5 CEFTRIAXONE 1 G/50 ML PREMIX 50 mls @ 100 mls/hr 08/06/17 12:15 08/07/17 09: 40 Ceftriaxone 1 Gm-D5w Bag IVPB 100 mls/hr DAILY ALEX Administration Metronidazole 500 mg in 100 mls @ 100 mls/hr 08/06/17 12:15 08/07/17 09:40 Flagyl 500mg Premixed Ivpb - IVPB 100 mls/hr Q8H-IV ALEX Administration Dextrose/Sodium Chloride 1,000 mls @ 100 mls/hr 08/06/17 13:30 08/07/17 06:53 D5-Ns - IV 100 mls/hr ASDIR ALEX Administration Ondansetron HCl 4 mg 08/06/17 04:39 08/07/17 01:24 Zofran Injection IVPUSH 4 mg Q6H PRN Administration NAUSEA Oxycodone HCl 5 mg 08/07/17 08:32 08/07/17 09:40 Roxicodone - PO 5 mg Q4H PRN Administration PAIN LEVEL 6-10 Pantoprazole Sodium 40 mg 08/06/17 10:00 08/07/17 09:40 Protonix Iv IVPUSH 40 mg BID ALEX Administration Laboratory Results - last 24 hr 08/06/17 08/07/17 08/07/17 15:31 06:10 06:10 WBC RBC Hgb Hct MCV MCH MCHC RDW Plt Count MPV Neutrophils % Lymphocytes % Monocytes % Eosinophils % Basophils % PT with INR 13.60 H INR 1.20 H Sodium 138 Potassium 3.6 Chloride 109 H Carbon Dioxide 24 Anion Gap 5 L BUN 10 Creatinine 0.5 L Creat Clearance w eGFR > 60 Random Glucose 93 Calcium 7.6 L Phosphorus 2.4 L Magnesium 1.9 Total Bilirubin 0.5 D AST 6 L ALT 28 Alkaline Phosphatase 65 Total Protein 5.9 L Albumin 3.5 Urine Color Ltyellow Urine Appearance Slcloudy Urine pH 7.0 D Ur Specific [place] 1.055 H Urine Protein Negative Urine Glucose (UA) Negative Urine Ketones 2+ H Urine Blood Negative Urine Nitrite Negative Urine Bilirubin Negative Urine Urobilinogen Negative Ur Leukocyte Esterase Negative 08/07/17 06:10 WBC 8.7 D RBC 3.66 Hgb 10.8 Hct 32.8 MCV 89.7 MCH 29.4 MCHC 32.7 RDW 12.8 Plt Count 203 MPV 10.0 Neutrophils % 62.1 D Lymphocytes % 29.1 D Monocytes % 6.9 Eosinophils % 1.6 D Basophils % 0.3 PT with INR INR Sodium Potassium Chloride Carbon Dioxide Anion Gap BUN Creatinine Creat Clearance w eGFR Random Glucose Calcium Phosphorus Magnesium Total Bilirubin AST ALT Alkaline Phosphatase Total Protein Albumin Urine Color Urine Appearance Urine pH Ur Specific [place] Urine Protein Urine Glucose (UA) Urine Ketones Urine Blood Urine Nitrite Urine Bilirubin Urine Urobilinogen Ur Leukocyte Esterase Microbiology 08/06/17 14:45 Stool Clostridium difficile Antigen (IVAN) - Final 08/06/17 14:45 Stool Clostridium difficile Toxin Assay - Final ASSESSMENT AND PLAN: 31 yof with acute colitis -Acute right sided/transverse colitis -Recent sore throat s/p amoxicillin Plan; GI input appreciated, presentation more likely for infectious than inflammatory colitis as discussed. C diff ag positive but toxin neg. However patient with recent antibiotics, also symptomatic on presentation and CT with colitis. ID input to address abx Ceftriaxone/flagyl day 2. Follow up stool studies. advance to clears, if ok, place on BRAT diet today. dc IVF once eating well. h.h stable, monitor for now. DVTPPx with SCDs. dispo planning in 24 hours pendign ID input if continues to improve. Discussed with patient that will need GI follow up outpatient for possible colonoscopy in 6-8 weeks.
--- NOTE | 2017-08-07 12:36 | PN ---
Progress Note, Physician History of Present Illness: clinically improved. CT scan results noted. No events - Current Medication List Current Medications: Active Medications Acetaminophen (Tylenol -) 650 mg PO Q6H PRN PRN Reason: PAIN LEVEL 1-5 CEFTRIAXONE 1 G/50 ML PREMIX (Ceftriaxone 1 Gm-D5w Bag) 50 mls @ 100 mls/hr IVPB DAILY [facility] Last Admin: 08/07/17 09:40 Dose: 100 mls/hr Metronidazole (Flagyl 500mg Premixed Ivpb -) 500 mg in 100 mls @ 100 mls/hr IVPB Q8H-IV [facility] Last Admin: 08/07/17 09:40 Dose: 100 mls/hr Dextrose/Sodium Chloride (D5-Ns -) 1,000 mls @ 100 mls/hr IV ASDIR [facility] Last Admin: 08/07/17 06:53 Dose: 100 mls/hr Ondansetron HCl (Zofran Injection) 4 mg IVPUSH Q6H PRN PRN Reason: NAUSEA Last Admin: 08/07/17 01:24 Dose: 4 mg Oxycodone HCl (Roxicodone -) 5 mg PO Q4H PRN PRN Reason: PAIN LEVEL 6-10 Last Admin: 08/07/17 09:40 Dose: 5 mg Pantoprazole Sodium (Protonix Iv) 40 mg IVPUSH BID [facility] Last Admin: 08/07/17 09:40 Dose: 40 mg - Objective Vital Signs: Vital Signs Temperature 97.8 F 08/07/17 06:07 Pulse Rate 74 08/07/17 06:07 Respiratory Rate 18 08/07/17 06:07 Blood Pressure 112/73 08/07/17 06:07 O2 Sat by Pulse Oximetry (%) 100 08/06/17 21:00 Constitutional: Yes: Well Nourished, No Distress, Calm Eyes: Yes: Conjunctiva Clear HENT: Yes: Atraumatic Neck: Yes: Supple Cardiovascular: Yes: Regular Rate and Rhythm Respiratory: Yes: Regular Gastrointestinal: Yes: Soft, Tenderness (LLQ) Neurological: Yes: Alert, Oriented Labs: CBC, BMP 08/07/17 06:10 08/07/17 06:10 INR, PTT INR 1.20 (0.82-1.09) H 08/07/17 06:10 Abnormal Lab Results 08/06/17 08/07/1718 15:31 06:10 06:10 PT with INR 13.60 H INR 1.20 H Chloride 109 H Anion Gap 5 L Creatinine 0.5 L Calcium 7.6 L Phosphorus 2.4 L AST 6 L Total Protein 5.9 L Ur Specific [place] 1.055 H Urine Ketones 2+ H - ....Imaging Cat Scan: Report Reviewed Problem List - Problems (1) Enterocolitis Code(s): K52.9 - NONINFECTIVE GASTROENTERITIS AND COLITIS, UNSPECIFIED Assessment/Plan Clinically better. Stool, CT findings noted Continue current care, and diet PPI IV BID changed to PO daily Continue Abx for 7-10 days total Probiotic on d/c for 2 weeks If lingering GI symptoms persist for more than 4 weeks, schedule colonoscopy to r/o IBD. Discussed with the pt.
[2017-08-07] MEDS: SIMETHICONE 80 MG TAB.CHEW (FP) PO PRN ×2 (16:01→21:46)
[2017-08-07] MEDS: oxyCODONE HCL 10 MG SUSTAINED ACTING TABLET PO SCH (21:46)
[2017-08-08] MEDS: oxyCODONE HCL 5 MG TABLET PO PRN (02:08)
[2017-08-08 08:12] LABS: ALBUMIN 3.4 g/dl (3.4-5.0); ANION GAP 7 (8-16); BASO % 0.5 % (0-2.0); BLOOD UREA NITROGEN 7 mg/dL (7-18); CALCIUM 7.7 mg/dL (8.5-10.1); CHLORIDE 106 mmol/L (98-107); CO2 28 mmol/L (21-32); EOS % 3.5 % (0-4.5); GLUCOSE,RANDOM 83 mg/dL (74-106); HEMATOCRIT 32.5 % (32.4-45.2); HEMOGLOBIN 10.6 GM/dL (10.7-15.3); LYMPH % 38.8 % (8-40); MCH 29.2 pg (25.7-33.7); MCHC 32.5 g/dl (32.0-36.0); MEAN CELL VOLUME 89.8 fl (80-96); MEAN PLT VOLUME 9.4 fl (7.5-11.1); MONO % 7.5 % (3.8-10.2); NEUT % 49.7 % (42.8-82.8); PHOSPHOROUS 3.1 mg/dL (2.5-4.9); PLATELET COUNT 202 K/MM3 (134-434); POTASSIUM 3.7 mmol/L (3.5-5.1); RBC 3.62 M/mm3 (3.60-5.2); RDW 12.9 % (11.6-15.6); SGOT/AST 5 U/L (15-37); SGPT/ALT 26 U/L (12-78); SODIUM 141 mmol/L (136-145); WHITE BLOOD COUNT 8.9 K/mm3 (4.0-10.0)
[2017-08-08 08:14] LABS: ALK PHOS 63 U/L (45-117); BILIRUBIN,TOTAL 0.6 mg/dL (0.2-1.0); CREATININE 0.6 mg/dL (0.55-1.02); TOT PROT 5.8 g/dl (6.4-8.2)
[2017-08-08] MEDS: CEFTRIAXONE 1 G/50 ML PREMIX 50 ML IVPB SCH (09:30)
[2017-08-08] MEDS: SIMETHICONE 80 MG TAB.CHEW (FP) PO PRN (09:31)
[2017-08-08] MEDS: oxyCODONE HCL 10 MG SUSTAINED ACTING TABLET PO SCH (09:32)
--- NOTE | 2017-08-08 09:37 | PN ---
Progress Note (short form) - Note Progress Note: ID Given the context of recent antibiotic for exudative pharyngitis Amoxicillin I would treat for C diff infection. 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 difficile colitis Code(s): A04.72 - ENTEROCOLITIS D/T CLOSTRIDIUM DIFFICILE, NOT SPCF RECUR (2) Enterocolitis Code(s): K52.9 - NONINFECTIVE GASTROENTERITIS AND COLITIS, UNSPECIFIED
[2017-08-08] MEDS ORDERED: PANTOPRAZOLE 40 MG TABLET (FP) PO SCH (10:00)
[2017-08-08] MEDS: metroNIDAZOLE 250 MG TABLET PO SCH ×2 (10:24→13:29)
[2017-08-08 10:57] VITALS: BP 99/75; PULSE 61; TEMP 97.9
--- NOTE | 2017-08-08 12:31 | DS ---
Physical Exam: SUBJECTIVE: Patient seen and examined, no nausea, vomiting, fevers, chills or diarrhea. Eating well, eager to go home. OBJECTIVE: Vital Signs Period Temp Pulse Resp BP Sys/Martines Pulse Ox Last 24 Hr 97.9 F-98.6 F 57-84 16-18 99-124/61-75 100-100 PHYSICAL EXAM general: ambulating in room, no acute distress CVS:S1S2 regular Chest: CTAB, no rales or wheezing abdomen: soft, NT throughout, ND, positive bowel sounds extremities: no edema LABS Laboratory Results - last 24 hr 08/08/17 08/08/17 06:25 06:25 WBC 8.9 RBC 3.62 Hgb 10.6 L Hct 32.5 MCV 89.8 MCH 29.2 MCHC 32.5 RDW 12.9 Plt Count 202 MPV 9.4 Neutrophils % 49.7 Lymphocytes % 38.8 D Monocytes % 7.5 Eosinophils % 3.5 D Basophils % 0.5 Sodium 141 Potassium 3.7 Chloride 106 Carbon Dioxide 28 Anion Gap 7 L BUN 7 Creatinine 0.6 Creat Clearance w eGFR > 60 Random Glucose 83 Calcium 7.7 L Phosphorus 3.1 Magnesium 2.0 Total Bilirubin 0.6 AST 5 L ALT 26 Alkaline Phosphatase 63 Total Protein 5.8 L Albumin 3.4 HOSPITAL COURSE: Date of Admission:08/06/17 Date of Discharge: 08/08/17 Minutes to complete discharge: 40 Discharge Summary Reason For Visit: UPPER GASTROINTESTINAL HEMORRHAGE Current Active Problems C. difficile colitis (Acute) Enterocolitis (Acute) Upper GI bleed (Acute) Hospital Course: Patient was admitted with nausea, vomiting, bloody diarrhea, and vomitus that was initially blood streaked but none since admission. She was seen by gastroenterology and felt to have infectious diarrhea. She was placed on ceftriaxone/flagyl. Her symptoms improved. She was tolerating diet well. no further diarrhea or vomiting was noted inhouse. She had CT A/P that showed right and tranverse colitis. She had stool studies sent, stool WBC was negative , perlim stool cultures are neg so far however, her C difficile antigen was positive with negative toxin. She was seen by infectious disease and given recent antibiotic exposure and colitis, she was felt to have ACute C difficile colitis. Her Ceftriaxone was discontinued and she will be discharge on 14 days of flagyl. She is advised outpatient gastoenterology follow up if her symptoms fail to resolve completely with antibiotics. She was noted to be on high dose chronic opioids, that was confirmed, Oxycontin 30 mg BID and oxycodone 30 mg PO q6h prn. Condition: Stable - Instructions Diet, Activity, Other Instructions: You were admitted with C difficile colitis, You were seen by gastroenterology and infectious disease. You are discharged on 14 day course of flagyl and also advise protonix and probiotics for 2 weeks, that have been sent to [facility] pharmacy on [address] If you still continue to have lingering symptoms, please follow up with power plant assistant for outpatient endoscopy and colonoscopy. (contact info for Dr. Forbes provided). If you have severe belly pain, fevers, chills, dark or bloody diarrhea, bloody vomitus or inability to eat, call 911 or come to ED immediately. Your prelim stool cultures are negative but final results can take upto a few days to return. You can have your doctor follow up on results especially in the case your symptoms don't fully resolve. You are advised rest, light activity and avoid work till your symptoms have fully resolved, atleast for 5-7, then resume activity as directed by your outpatient doctor. Referrals: Fred Forbes MD [Staff Physician] - 3 Weeks Disposition: HOME - Home Medications Comprehensive Discharge Medication List: Ambulatory Orders Oxycodone HCl 30 mg PO Q6H PRN 08/05/15 Oxycodone Sr [Oxycontin] 30 mg PO BID 08/05/15 Lactobacillus Acidophilus [Acidophilus] 1 each PO DAILY #14 capsule 08/08/17 Metronidazole [Flagyl -] 500 mg PO Q8H 14 Days #42 tablet 08/08/17 Ondansetron [Zofran -] 4 mg PO BID PRN 08/08/17 Pantoprazole Sodium [Protonix] 40 mg PO DAILY #14 tablet. 08/08/17 This patient is new to me today: No Emergency Visit: No Critical Care patient: No - Discharge Referral Referred to [facility] No
--- NOTE | 2017-08-08 12:38 | CONS ---
DATE OF CONSULTATION: DATE OF DICTATION: 08/08/2017 This is a 31-year-old female with a history of a gastric ulcer approximately a year ago, treated by Dr. Liriano, who presents now with diarrheal stool with some hematochezia and severe abdominal cramping and nausea. History is significant in that prior to this, she had had what she described as a severe exudative pharyngitis. 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 At that time, she began to get onset of the above-mentioned symptoms and stopped the antibiotic. She denied any fever or chills, and is admitted for management of severe abdominal pain. She was seen in consultation by the primary care service with a diagnosis of acute enterocolitis. She had a CAT scan of the abdomen, which showed colitis of the right and transverse colon; an ovarian cyst was noted. The stool cultures were negative for enteric pathogens, and a C difficile toxin was sent, which was found to be antigen positive but toxin negative. The patient was treated with a combination of ceftriaxone and metronidazole, the latter given intravenously. The patient has now been in the hospital for 2 days and is markedly better. She has remained afebrile from admission and her white blood cell count initially 14,000, is now normal at 8.9. She has no history of recent travel. 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 Pets include several cats. No change in diet. No HIV risk factors and has been previously tested negative in the recent past. She has a male significant other. No one at home is sick, and there is no travel history. Other than her peptic ulcer disease and an ovarian cyst, she is an otherwise healthy individual. Medications now include antibiotics, as noted above. ALLERGIES: None known. SOCIAL HISTORY: Nonsmoker. No history of drug use. FAMILY HISTORY: Reviewed and noncontributory. REVIEW OF SYSTEMS: Respiratory: No cough, shortness of breath. Cardiac: No chest pain, palpitations, murmur. Gastrointestinal: Currently diarrhea markedly improved. No further hematochezia. No abdominal cramping, nausea, vomiting. Genitourinary: No dysuria, hematuria. PHYSICAL EXAMINATION: General: She was a pleasant, alert woman, in no acute distress. Vital Signs: Temperature 98.5, pulse 57, blood pressure 103/61, respirations 16. Neck: Supple. Lungs: Clear to P&A. Heart: S1, S2. Regular rhythm without audible murmur or gallop. Abdomen: Soft, nontender, positive bowel sounds. Not distended. No hepatosplenomegaly. Extremities: Without clubbing, cyanosis or edema. Labs include a white count of 8.9, hemoglobin 10.6, platelets of 202. Chemistries completely within normal limits. Urinalysis negative for leukocyte esterase. test is negative. CT scan of the abdomen reviewed, as previously mentioned, findings consistent with right and transverse colon. 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 The differential diagnosis would include a C difficile infection( with a lower than threshold detection for toxin, given her symptoms) which followed immediately after a 6 day course of amoxicillin for a sore throat. This has to be considered and should be treated. The alternative possibility is that she had an enterocolitis of an unspecified etiology and that the Clostridium difficile antigen presented solely colonization. She is an otherwise healthy woman and,most bacterial or viral enteric pathogens, she get better spontaneously. At this point, my recommendations would be to stop ceftriaxone, as this may aggravate her potential Clostridium difficile situation, to treat her with metronidazole 500 mg orally t.i.d. for a total of 14 days, and lastly, have her follow up with her primary medical doctor to make sure her symptoms are improving and that no further workup for further GI complaints, including inflammatory bowel disease develop. All of this was explained to her , and all her questions answered. JOSEPHINE MENDIETA M.D. [id number] MELVI
[2017-08-08] MEDS: DEXTROSE 5%-NORMAL SALINE 1,000 ML IV SCH (13:29)
== END 2017-08-08 14:03 | disposition home or self-care (01) | DRG 373 ==
LOC: JER 23:15 → JERBED 08-06 03:23 → UNDOADMOB 08-06 03:31 → JERBED 08-06 03:31 → OBSVTOIN 08-06 04:34 → J7W 08-06 16:05
PROVIDERS: ADMIT Internal Medicine; ATTEND Hospitalist
DX: A04.72 Enterocolitis due to Clostridium difficile, not specified as recurrent (principal); K64.4 Residual hemorrhoidal skin tags; Z87.11 Personal history of peptic ulcer disease
CPT/HCPCS: 36415; 74177-TC; 80053; 81003; 82272; 83690; 83735; 84100; 84703; 85025; 85610; 85730; 86850; 86900; 86901; 87045; 87046; 87086; 87177; 87205; 87209; 87324; 87449; 99285-25; G0378

== ENCOUNTER 2023-07-29 04:09 | Emergency (ER) | payer BC, OTHER ==
[2023-07-29] MEDS ORDERED: LACTATED RINGERS SOLUTION 1000 ML INFUS.BAG IV ONE (05:42)
[2023-07-29] MEDS ORDERED: ACETAMINOPHEN 1000 MG/100 ML BAG IVPB ONE (05:42)
[2023-07-29 06:24] LABS: BASO % 1.1 % (0-2.0); EOS % 5.1 % (0-4.5); HEMOGLOBIN 12.6 GM/dL (10.7-15.3); MCHC 31.6 g/dl (32.0-36.0); MEAN CELL VOLUME 88.6 fl (80-96); MEAN PLT VOLUME 9.9 fl (7.5-11.1); MONO % 5.8 % (3.8-10.2); PLATELET COUNT 479 10^3/uL (134-434); RBC 4.52 M/mm3 (3.60-5.2); RDW 16.3 % (11.6-15.6); WHITE BLOOD COUNT 15.6 K/mm3 (4.0-10.0)
[2023-07-29 06:27] LABS: INR 1.07 (0.83-1.09); PROTHROMBIN TIME (PATIENT) 12.4 SEC (9.7-13.0)
[2023-07-29 06:29] LABS: ACTIVATED PTT 30.8 SECONDS (25.2-36.5)
[2023-07-29] MEDS ORDERED: ONDANSETRON 4 MG/2 ML VIAL IVPUSH ONE (06:36)
[2023-07-29] MEDS ORDERED: morphine CARPU-JECT 4 MG/1 ML DISP.SYRIN IVPUSH ONE (06:36)
[2023-07-29] MEDS ORDERED: ONDANSETRON 4 MG/2 ML VIAL ONE (06:48)
[2023-07-29] MEDS ORDERED: morphine SULFATE 4 MG/ML VIAL ONE (06:48)
[2023-07-29] MEDS ORDERED: morphine CARPU-JECT 2 MG/1 ML DISP.SYRIN IM ONE (06:54)
[2023-07-29] MEDS ORDERED: SODIUM CHLORIDE 0.9% 500 ML INFUS.BAG IV ONE (06:55)
[2023-07-29 08:05] LABS: POTASSIUM 3.9 mmol/L (3.5-5.1)
[2023-07-29 08:07] LABS: ALBUMIN 4.1 g/dl (3.4-5.0); CALCIUM 9.5 mg/dL (8.5-10.1); MAGNESIUM 2.6 mg/dL (1.8-2.4)
[2023-07-29 08:08] LABS: BLOOD UREA NITROGEN 14.1 mg/dL (7-18)
[2023-07-29 08:11] LABS: CREATININE 0.7 mg/dL (0.55-1.3)
[2023-07-29 08:12] LABS: TOT PROT 7.8 g/dl (6.4-8.2)
[2023-07-29 08:16] LABS: BILIRUBIN,TOTAL 0.4 mg/dL (0.2-1)
[2023-07-29 10:25] LABS: EPI CELLS >36 /uL (0-25.1); HYALINE CASTS 2 /uL (0-3.1); PH,URINE 7.5 (5.0-8.0); URINE APPEARANCE TURBID; URINE BACTERIA >9,000 /uL (0-1359); URINE BILIRUBIN NEGATIVE (NEGATIVE); URINE COLOR YELLOW; URINE GLUCOSE (UA) NEGATIVE (NEGATIVE); URINE KETONE NEGATIVE (NEGATIVE); URINE LEUK ESTERASE 2+ (NEGATIVE); URINE NITRITE NEGATIVE (NEGATIVE); URINE PROTEIN NEGATIVE (NEGATIVE); URINE RBC 8 /uL (0-23.9); URINE WBC 69 /uL (0-25.8)
[2023-07-29] MEDS ORDERED: KETOROLAC TROMETHAMINE 15 MG/ML VIAL IVPUSH ONE (10:42)
[2023-07-29] MEDS ORDERED: KETOROLAC TROMETHAMINE 15 MG/ML VIAL ONE (10:59)
[2023-07-29 14:24] VITALS: BP 102/66; PULSE 68; RESP 16
[2023-07-29 14:37] VITALS: TEMP 97.7
== END 2023-07-29 13:36 | disposition home or self-care (01) ==
LOC: JER 04:09
PROC: 2W3DX1Z Immobilization of Left Lower Arm using Splint (ICD-10-PCS; principal; 2023-07-29)
PROC: 3E033NZ Introduction of Analgesics, Hypnotics, Sedatives into Peripheral Vein, Percutaneous Approach (ICD-10-PCS; 2023-07-29)
PROC: 3E0333Z Introduction of Anti-inflammatory into Peripheral Vein, Percutaneous Approach (ICD-10-PCS; 2023-07-29)
PROC: 3E033GC Introduction of Other Therapeutic Substance into Peripheral Vein, Percutaneous Approach (ICD-10-PCS; 2023-07-29)
PROC: 3E023GC Introduction of Other Therapeutic Substance into Muscle, Percutaneous Approach (ICD-10-PCS; 2023-07-29)
DX: S52.502A Unspecified fracture of the lower end of left radius, initial encounter for closed fracture (principal); R55 Syncope and collapse; M25.532 Pain in left wrist; R42 Dizziness and giddiness; W18.39XA Other fall on same level, initial encounter
CPT/HCPCS: 36415; 70450-TC; 72125-TC; 73090-TC-LT-FY; 73110-TC-LT-FY; 73130-TC-LT-FY; 80053; 81003; 83735; 84484; 84703; 85025; 85610; 85730; 87086; 87186; 93005; 93010; 99285-25

== ENCOUNTER 2023-10-28 04:55 | Inpatient (IN) | payer BC, OTHER ==
[2023-10-28] MEDS ORDERED: ALBUTEROL SO4 2.5/IPRATROPIUM 0.5 INH SOL 3 ML VIAL.NEB. NEB ONE (05:10)
[2023-10-28] MEDS ORDERED: methylPREDNISolone NA SUCC 125 MG/2 ML VIAL ONE (05:10)
[2023-10-28] MEDS: ALBUTEROL SO4 2.5/IPRATROPIUM 0.5 INH SOL 3 ML VIAL.NEB. NEB STA (05:25)
[2023-10-28] MEDS: methylPREDNISolone NA SUCC 125 MG/2 ML VIAL IVPUSH ONE (05:25)
[2023-10-28] MEDS: SODIUM CHLORIDE 0.9% 1000 ML INFUS.BAG IV ONE (05:33)
[2023-10-28 05:58] LABS: HEMATOCRIT 40.7 % (32.4-45.2); HEMOGLOBIN 13.1 GM/dL (10.7-15.3); MCH 29.5 pg (25.7-33.7); MCHC 32.1 g/dl (32.0-36.0); MEAN CELL VOLUME 91.8 fl (80-96); MEAN PLT VOLUME 10.2 fl (7.5-11.1); PLATELET COUNT 480 10^3/uL (134-434); RBC 4.44 M/mm3 (3.60-5.2); RDW 15.5 % (11.6-15.6); WHITE BLOOD COUNT 28.3 K/mm3 (4.0-10.0)
[2023-10-28 06:05] LABS: VENOUS BASE EXCESS -1.8 mmol/L (-2-2); VENOUS O2 SATURATION 43.5 % (70-80); VENOUS PCO2 57.8 mmHg (38-52); VENOUS PH 7.274 (7.310-7.410)
[2023-10-28 06:16] LABS: POTASSIUM 4.4 mmol/L (3.5-5.1)
[2023-10-28 06:18] LABS: CALCIUM 9.2 mg/dL (8.5-10.1)
[2023-10-28 06:19] LABS: ALBUMIN 4.4 g/dl (3.4-5.0); BLOOD UREA NITROGEN 7.9 mg/dL (7-18)
[2023-10-28] MEDS ORDERED: AZITHROMYCIN IVPB 500 MG/250 ML BAG IVPB ONE (06:24)
[2023-10-28] MEDS ORDERED: MAGNESIUM SULFATE IN WATER 2 GM/50 ML IVPB IVPB ONE (06:24)
[2023-10-28] MEDS ORDERED: CEFTRIAXONE 1 GM/50 ML BAG ONE (06:24)
[2023-10-28 06:27] LABS: BILIRUBIN,TOTAL 0.9 mg/dL (0.2-1); CREATININE 0.7 mg/dL (0.55-1.3); N-TERMINAL BNP 133.6 pg/ml (5-125); TOT PROT 7.9 g/dl (6.4-8.2)
[2023-10-28] MEDS: MAGNESIUM SULFATE IN WATER 2 GM/50 ML IVPB IVPB ONE (06:31)
[2023-10-28] MEDS: AZITHROMYCIN IVPB 500 MG in DEXTROSE 5%-WATER - 250 ML IVPB ONE (06:54)
[2023-10-28 08:19] LABS: INR 1.11 (0.83-1.09); PROTHROMBIN TIME (PATIENT) 12.9 SEC (9.7-13.0)
[2023-10-28 08:20] LABS: ACTIVATED PTT 33.8 SECONDS (25.2-36.5)
[2023-10-28 09:12] LABS: EPI CELLS 27 /uL (0-25.1); HYALINE CASTS 1 /uL (0-3.1); URINE APPEARANCE CLEAR; URINE BACTERIA 3110 /uL (0-1359); URINE BILIRUBIN NEGATIVE (NEGATIVE); URINE COLOR YELLOW; URINE GLUCOSE (UA) NEGATIVE (NEGATIVE); URINE KETONE NEGATIVE (NEGATIVE); URINE LEUK ESTERASE 1+ (NEGATIVE); URINE NITRITE POSITIVE (NEGATIVE); URINE PROTEIN NEGATIVE (NEGATIVE); URINE RBC 9 /uL (0-23.9); URINE UROBILINOGEN 0.2 mg/dL (0.2-1.0); URINE WBC 75 /uL (0-25.8)
[2023-10-28] MEDS ORDERED: ALBUTEROL SO4 2.5/IPRATROPIUM 0.5 INH SOL 3 ML VIAL.NEB. NEB PRN (10:40)
[2023-10-28] MEDS ORDERED: ALBUTEROL SO4 HFA INHALER IH PRN (10:41)
[2023-10-28] MEDS: ENOXAPARIN NA (PORCINE) 40 MG/0.4 ML DISP.SYRIN SQ SCH (11:39)
[2023-10-28] MEDS: DULoxetine HCL 30 MG CAPSULE.DR PO SCH (11:40)
[2023-10-28] MEDS: BUDESONIDE/FORMETEROL FUMARATE 160/4.5 mcg INHALER IH SCH (14:44)
[2023-10-28] MEDS: ALBUTEROL SO4 2.5/IPRATROPIUM 0.5 INH SOL 3 ML VIAL.NEB. NEB SCH (15:30)
[2023-10-28 16:06] VITALS: BMI 28.6
[2023-10-28] MEDS: methylPREDNISolone NA SUCC 40 MG/1 ML VIAL IVPUSH SCH (17:47)
[2023-10-28] MEDS ORDERED: methylPREDNISolone NA SUCC 40 MG/1 ML VIAL IVPB SCH (18:00)
[2023-10-29 08:27] LABS: HEMATOCRIT 35.7 % (32.4-45.2); HEMOGLOBIN 11.4 GM/dL (10.7-15.3); MCH 28.8 pg (25.7-33.7); MEAN CELL VOLUME 89.9 fl (80-96); MEAN PLT VOLUME 10.7 fl (7.5-11.1); PLATELET COUNT 450 10^3/uL (134-434); RBC 3.97 M/mm3 (3.60-5.2); RDW 15.3 % (11.6-15.6)
[2023-10-29 08:29] LABS: MAGNESIUM 2.2 mg/dL (1.8-2.4)
[2023-10-29 08:33] LABS: PHOSPHOROUS 3.9 mg/dL (2.5-4.9)
[2023-10-29 09:14] LABS: ANISOCYTOSIS 0; HELMET CELLS 0; HOWELL-JOLLY BODIES 0; MACROCYTOSIS 0; OVALOCYTE 0; ROULEAU 0; SICKELED CELLS 0; TARGET CELLS 0; TEAR DROP CELLS 0; TOXIC GRANULATION 0
[2023-10-29] MEDS: CEFTRIAXONE 1 GM in DEXTROSE 5%-WATER - 50 ML IVPB SCH (09:46)
[2023-10-29] MEDS ORDERED: methylPREDNISolone NA SUCC 40 MG/1 ML VIAL IVPB SCH (10:00)
[2023-10-29] MEDS: AZITHROMYCIN IVPB 500 MG/250 ML BAG IVPB SCH (11:05)
[2023-10-29] MEDS: methylPREDNISolone NA SUCC 40 MG/1 ML VIAL IVPUSH SCH (21:23)
[2023-10-30 08:40] LABS: HEMATOCRIT 34.3 % (32.4-45.2); HEMOGLOBIN 11.1 GM/dL (10.7-15.3); MCHC 32.4 g/dl (32.0-36.0); MEAN CELL VOLUME 89.5 fl (80-96); MEAN PLT VOLUME 10.5 fl (7.5-11.1); PLATELET COUNT 489 10^3/uL (134-434); RBC 3.83 M/mm3 (3.60-5.2); RDW 15.5 % (11.6-15.6)
[2023-10-30 08:45] LABS: POTASSIUM 4.6 mmol/L (3.5-5.1)
[2023-10-30 08:54] LABS: WHITE BLOOD COUNT 32.4 K/mm3 (4.0-10.0)
[2023-10-30 09:06] LABS: CALCIUM 9.5 mg/dL (8.5-10.1)
[2023-10-30 09:08] LABS: CREATININE 0.5 mg/dL (0.55-1.3)
[2023-10-30 09:47] LABS: ANISOCYTOSIS 0; HELMET CELLS 0; HOWELL-JOLLY BODIES 0; MACROCYTOSIS 0; OVALOCYTE 0; ROULEAU 0; SICKELED CELLS 0; TARGET CELLS 0; TEAR DROP CELLS 0; TOXIC GRANULATION 0
[2023-10-30] MEDS ORDERED: PIPERACILLIN/TAZOB 3.375 GM 3.375 GM in DEXTROSE 5%-WATER - 50 ML IVPB SCH (13:00)
[2023-10-30] MEDS: VANCOMYCIN PREMIX 1.5 GM 1,500 MG/300 ML BAG IVPB SCH (13:35)
[2023-10-30] MEDS: predniSONE 10 MG TABLET (UD) PO SCH (16:31)
[2023-10-31 08:07] LABS: POTASSIUM 4.4 mmol/L (3.5-5.1)
[2023-10-31 08:15] LABS: CALCIUM 8.8 mg/dL (8.5-10.1)
[2023-10-31 08:16] LABS: BLOOD UREA NITROGEN 10.1 mg/dL (7-18)
[2023-10-31 08:18] LABS: CREATININE 0.5 mg/dL (0.55-1.3)
[2023-10-31 08:20] LABS: BILIRUBIN,TOTAL 0.3 mg/dL (0.2-1); HEMATOCRIT 36.9 % (32.4-45.2); HEMOGLOBIN 11.7 GM/dL (10.7-15.3); MCH 28.8 pg (25.7-33.7); MCHC 31.7 g/dl (32.0-36.0); MEAN CELL VOLUME 90.9 fl (80-96); PLATELET COUNT 469 10^3/uL (134-434); RBC 4.06 M/mm3 (3.60-5.2); RDW 15.5 % (11.6-15.6); TOT PROT 6.1 g/dl (6.4-8.2); WHITE BLOOD COUNT 29.2 K/mm3 (4.0-10.0)
[2023-10-31 08:22] LABS: ALBUMIN 3.1 g/dl (3.4-5.0)
[2023-10-31] MEDS: CEFTRIAXONE 1 GM in DEXTROSE 5%-WATER - 50 ML IVPB SCH (09:44)
[2023-10-31 10:24] LABS: ANISOCYTOSIS 0; HELMET CELLS 0; HOWELL-JOLLY BODIES 0; MACROCYTOSIS 0; OVALOCYTE 0; ROULEAU 0; SICKELED CELLS 0; TARGET CELLS 0; TEAR DROP CELLS 0; TOXIC GRANULATION 0
[2023-10-31 21:00] LABS: OPIATES, URI NEGATIVE (NEGATIVE); URINE BARBITURATES NEGATIVE (NEGATIVE)
[2023-10-31 21:01] LABS: COCAINE, UR NEGATIVE (NEGATIVE); METHADONE, UR NEGATIVE (NEGATIVE); PHENCYCLIDINE,URINE NEGATIVE (NEGATIVE); URINE AMPHETAMINES NEGATIVE (NEGATIVE); URINE BENZODIAZEPINES NEGATIVE (NEGATIVE)
[2023-11-01 08:46] LABS: HEMOGLOBIN 13.1 GM/dL (10.7-15.3); MCH 29.2 pg (25.7-33.7); MCHC 32.8 g/dl (32.0-36.0); MEAN CELL VOLUME 89.1 fl (80-96); MEAN PLT VOLUME 9.9 fl (7.5-11.1); PLATELET COUNT 580 10^3/uL (134-434); RBC 4.49 M/mm3 (3.60-5.2); RDW 15.2 % (11.6-15.6); WHITE BLOOD COUNT 28.3 K/mm3 (4.0-10.0)
[2023-11-01 08:53] LABS: POTASSIUM 3.9 mmol/L (3.5-5.1)
[2023-11-01 08:55] LABS: BLOOD UREA NITROGEN 10.6 mg/dL (7-18); CALCIUM 9.6 mg/dL (8.5-10.1)
[2023-11-01 08:59] LABS: CREATININE 0.7 mg/dL (0.55-1.3)
[2023-11-01 09:00] LABS: BILIRUBIN,TOTAL 0.9 mg/dL (0.2-1); TOT PROT 7.1 g/dl (6.4-8.2)
[2023-11-01 09:16] LABS: ALBUMIN 3.8 g/dl (3.4-5.0)
[2023-11-01 09:21] LABS: ANISOCYTOSIS 1+; MACROCYTOSIS 0
[2023-11-02 08:51] LABS: POTASSIUM 5.2 mmol/L (3.5-5.1)
[2023-11-02 09:00] LABS: CALCIUM 9.4 mg/dL (8.5-10.1)
[2023-11-02 09:01] LABS: ALBUMIN 3.4 g/dl (3.4-5.0); BLOOD UREA NITROGEN 17.4 mg/dL (7-18)
[2023-11-02 09:03] LABS: HEMATOCRIT 39.8 % (32.4-45.2); HEMOGLOBIN 12.8 GM/dL (10.7-15.3); MCH 29.2 pg (25.7-33.7); MCHC 32.2 g/dl (32.0-36.0); MEAN CELL VOLUME 90.7 fl (80-96); PLATELET COUNT 576 10^3/uL (134-434); RBC 4.39 M/mm3 (3.60-5.2); RDW 15.1 % (11.6-15.6)
[2023-11-02 09:04] LABS: CREATININE 0.7 mg/dL (0.55-1.3)
[2023-11-02 09:05] LABS: BILIRUBIN,TOTAL 0.6 mg/dL (0.2-1); TOT PROT 6.6 g/dl (6.4-8.2)
[2023-11-02 09:09] LABS: WHITE BLOOD COUNT 32.4 K/mm3 (4.0-10.0)
[2023-11-02] MEDS: oxyCODONE HCL 5 MG TABLET PO PRN (09:10)
[2023-11-02] MEDS: FAMOTIDINE 20 MG TABLET PO SCH (13:06)
[2023-11-02] MEDS: MELATONIN 5 MG TABLETS PO SCH (22:07)
[2023-11-02] MEDS: hydrOXYzine PAMOATE 25 MG CAPSULE (FP) PO ONE (22:29)
[2023-11-02 22:49] VITALS: RESP 18
[2023-11-03 08:09] VITALS: BP 106/68; PULSE 76; TEMP 98.4
[2023-11-03 08:24] LABS: HEMATOCRIT 42.9 % (32.4-45.2); HEMOGLOBIN 13.9 GM/dL (10.7-15.3); MCH 29.2 pg (25.7-33.7); MCHC 32.5 g/dl (32.0-36.0); MEAN CELL VOLUME 89.9 fl (80-96); PLATELET COUNT 607 10^3/uL (134-434); RBC 4.77 M/mm3 (3.60-5.2); RDW 15.5 % (11.6-15.6)
[2023-11-03 08:37] LABS: WHITE BLOOD COUNT 32.6 K/mm3 (4.0-10.0)
[2023-11-03 08:41] LABS: POTASSIUM 4.4 mmol/L (3.5-5.1)
[2023-11-03 08:51] LABS: CALCIUM 9.3 mg/dL (8.5-10.1)
[2023-11-03 08:52] LABS: ALBUMIN 3.7 g/dl (3.4-5.0); BLOOD UREA NITROGEN 16.9 mg/dL (7-18)
[2023-11-03 08:55] LABS: CREATININE 0.7 mg/dL (0.55-1.3)
[2023-11-03 08:56] LABS: BILIRUBIN,TOTAL 0.7 mg/dL (0.2-1); TOT PROT 6.9 g/dl (6.4-8.2)
[2023-11-03 09:49] LABS: ANISOCYTOSIS 0; MACROCYTOSIS 0
== END 2023-11-03 12:29 | disposition home or self-care (01) | DRG 194 ==
LOC: JER 04:55 → JERBED 08:23 → J7W 09:21
PROVIDERS: ADMIT Internal Medicine; ATTEND Nurse Practitioner
DX: J18.9 Pneumonia, unspecified organism (principal); J45.41 Moderate persistent asthma with (acute) exacerbation; R78.81 Bacteremia; D72.10 Eosinophilia, unspecified; D72.829 Elevated white blood cell count, unspecified
CPT/HCPCS: 0241U-QW; 36415; 70450-TC; 71045-TC-FY; 71275-TC; 80048; 80053; 80307; 81003; 82607; 82785; 82803; 82962; 82977; 83520; 83735; 83880; 84100; 84439; 84443; 84484; 84703; 85025; 85027; 85610; 85730; 86682; 87040; 87086; 88300-TC; 93005; 93010; 94640; 99285-25